=== PATIENT | male | born 1960 | race Caucasian/White ===

== ENCOUNTER 2019-04-12 17:52 | Emergency (ER) | payer OTHER ==
[2019-04-12] MEDS: HYDROCODONE/APAP (5/325) TAB PO (18:26)
== END 2019-04-12 19:51 | disposition home or self-care (01) ==
LOC: FTE 17:52
DX: S90.01XA Contusion of right ankle, initial encounter (principal); S93.401A Sprain of unspecified ligament of right ankle, initial encounter; W18.39XA Other fall on same level, initial encounter; Y92.9 Unspecified place or not applicable
CPT/HCPCS: 29515; 73610-RT; 73630; 99283-25